=== PATIENT | female | born 1985 | race African-American/Black ===

== ENCOUNTER 2017-12-26 14:16 | Emergency (ER) | payer SELFPAY ==
[~2017-12-26] VITALS: Ht 167.6 cm; Wt 70.0 kg
[~2017-12-26 14:16] MED LIST: IBUP800T23 PO; METH750T2 PO; TRAM50 PO
[2017-12-26 14:19] VITALS: BP 136/82; PULSE 82; RESP 16; TEMP 98.2; O2SAT 99
--- NOTE | 2017-12-26 14:53 | PD ---
HPI Chief Complaint: Skin Problem Time Seen by Provider: 14:43 Travel History International Travel<30 days: No Contact w/Intl Traveler<30days: No Traveled to known affect area: No History of Present Illness HPI 32-year-old female presents for evaluation. 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 She now presents for evaluation. She denies any widespread pruritic rash. She did notice to pruritic papular lesions on her forearms but is otherwise without complaint. She is here with 3 of her children for similar evaluation. Symptoms are mild, no aggravating or alleviating factors. No other complaints. PFSH Past Medical History Hx Anticoagulant Therapy: No Cardiovascular Problems: No Chemotherapy: No Cerebrovascular Accident: No Diabetes: No Diminished Hearing: No Respiratory: No Immunizations Current: No Tetanus Vaccination: < 5 Years ?: Not LMP: 12/12/17 : 3 Para: 2 Miscarriage: 0 : 1 Past Surgical History Abdominal Surgery: Yes (C SECTION X 1) Section: Yes Gynecologic Surgery: Yes (CSECTION 05/2007) Hysterectomy: No Social History Alcohol Use: No Tobacco Use: No Substance Use: No Allergies-Medications (Allergen,Severity, Reaction): Coded Allergies: No Known Allergies (Verified Adverse Reaction, Unknown, 12/26/17) Reported Meds & Prescriptions Reported Meds & Active Scripts Active Review of Systems General / Constitutional: No: Fever, Chills Skin: Positive Other (positive for itchy papular lesions.) Physical Exam Narrative GENERAL: Well-developed well-nourished female in no acute distress SKIN: Warm and dry. 2 small papular lesions noted to the forearms. HEAD: Atraumatic. Normocephalic. EYES: Pupils equal and round. No scleral icterus. No injection or drainage. ENT: No nasal bleeding or discharge. Mucous membranes pink and moist. NECK: Trachea midline. No JVD. CARDIOVASCULAR: Regular rate and rhythm. No murmur appreciated. RESPIRATORY: No accessory muscle use. Clear to auscultation. Breath sounds equal bilaterally. GASTROINTESTINAL: Abdomen soft, non-tender, nondistended. Hepatic and splenic margins not palpable. Data Data Last Documented VS Vital Signs Date Time Temp Pulse Resp B/P (MAP) Pulse Ox O2 Delivery O2 Flow Rate FiO2 12/26/17 14:45 12/26/17 14:19 98.2 82 16 99 [facility] Medical Decision Making Medical Screen Exam Complete: Yes Emergency Medical Condition: Yes Medical Record Reviewed: Yes Differential Diagnosis Bug bite, folliculitis, scabies Narrative Course The patient's examination is not consistent with scabies and most likely the 2 papular lesions are secondary to bug bites or folliculitis. She is stable for discharge. Diagnosis Primary Impression: Papules Additional Instructions: Avoid scratching. Return for any emergent medical conditions. Med/Other Pt SpecificInfo: No Change to Meds Disposition: 01 DISCHARGE HOME Condition: Stable Ace León Dec 26, 2017 14:53
== END 2017-12-26 15:27 | disposition home or self-care (01) ==
LOC: NEPK 14:16
DX: R23.8 Other skin changes (principal)
CPT/HCPCS: 99281